=== PATIENT | female | born 1995 | race Caucasian/White ===

== ENCOUNTER 2019-10-23 18:46 | Emergency (ER) | payer BC ==
--- NOTE | 2019-10-23 18:51 | EDM.PDOC ---
ED HPI GENERAL MEDICAL PROBLEM - General Chief Complaint: Laceration Stated Complaint: Laceration Time Seen by Provider: 10/23/19 18:50 Source of Information: Reports: Patient, Family (), Old Records ([facility] EMR. No paper hospital chart available.) History Limitations: Reports: No Limitations - History of Present Illness INITIAL COMMENTS - FREE TEXT/NARRATIVE: The patient was brought to the emergency room via private automobile by her for evaluation of lacerations on her right hand, which occurred while she was trying to cut some paper with scissors at home at about 18:15 hours. No treatment or medications taken to this point. She has not injured this hand in the past, however the patient is right-handed. She did receive her DTaP during her last about one year ago. No recent history of abdominal pain, heartburn, nausea, diarrhea, melena, gross hematochezia, or any food intolerance , including fatty foods, etc.. The patient also denies any recent fever, cough, wheezing, dyspnea, etc.. Onset: Today, Sudden Onset Date: 10/23/19 Onset Time: 18:15 Duration: Constant Location: Reports: Upper Extremity, Right. Denies: Head, Face, Neck, Chest, Abdomen, Back, Upper Extremity, Left, Radiates to Quality: Reports: Same as Previous Episode, Sharp Severity: Severe Improves with: Reports: Rest Worsens with: Reports: Movement Context: Reports: Trauma (As above) Associated Symptoms: Reports: No Other Symptoms. 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 Full term without complications during pregnancies or deliveries Musculoskeletal History: Reports: Arthritis, Back Pain, Chronic, Neck Pain, Chronic, Osteoarthritis Psychiatric History: Reports: Anxiety, Depression Social & Family History - Tobacco Use Smoking Status *Q: Never Smoker Tobacco Use Within Last Twelve Months: No Used Tobacco, but Quit: No Smoking Cessation Information Provided To Patient: No Second Hand Smoke Exposure: Yes Source of Second Hand Smoke Exposure: uses chewing tobacco. Second Hand Smoke Education Provided: Yes - Living Situation & Occupation Living situation: Reports: (2019, 2 children), with Family Occupation: Employed ([employer]) ED ROS GENERAL - Review of Systems Review Of Systems: Comprehensive ROS is negative, except as noted in HPI. ED EXAM, SKIN/RASH Exam: See Below Exam Limited By: No Limitations General Appearance: Alert, WD/WN, No Apparent Distress Head: Atraumatic, Normocephalic Neck: Normal Inspection, Supple, Non-Tender, Full Range of Motion. No: Lymphadenopathy (L), Lymphadenopathy (R), Thyromegaly Respiratory/Chest: No Respiratory Distress, Lungs Clear, Normal Breath Sounds, No Accessory Muscle Use, Chest Non-Tender. No: Pleural Rub, Retractions Cardiovascular: Normal Peripheral Pulses, Regular Rate, Rhythm, No Edema, No Gallop, No JVD, No Murmur, No Rub. No: Gallop/S3, Gallop/S4, Friction Rub Peripheral Pulses: 2+: Radial (L), Radial (R) GI/Abdominal: Normal Bowel Sounds, Soft, Non-Tender, No Organomegaly, No Distention, No Abnormal Bruit, No Mass. No: Guarding (Female) Exam: Deferred Rectal (Female) Exam: Deferred Back Exam: Normal Inspection, Full Range of Motion. No: CVA Tenderness (L), CVA Tenderness (R), Muscle Spasm Extremities: No Pedal Edema, Normal Capillary Refill, Limited Range of Motion ( Secondary to pain), Other (1 cm in length palmar lacerations over the proximal phalangeal creases digits #4 and 5 of the right hand with no joint involvement, foreign body, vascular/tendon involvement, etc.). No: Non-Tender (Moderate localized tenderness over laceration sites of the right hand as below), Mayela's Sign Neurological: Alert, Oriented, CN II-XII Intact, Normal Cognition, Normal Gait, No Motor/Sensory Deficits, Other (No clinical orthostasis) Psychiatric: Normal Affect, Normal Mood Skin: Tattoo(s), Wound/Incision. No: Diaphoretic Location, Skin: Upper Extremity, Right Characteristics: Linear, Other (As above) Associated features: Tenderness. No: Swelling Lymphatic: No Adenopathy ED SKIN PROCEDURES - Laceration/Wound Repair Right Digit - 4th (Ring) Appearance: Superficial, Linear, Clean Distal NVT: Neuro & Vascular Intact, No Tendon Injury Anesthetic Type: Local Local Anesthesia - Lidocaine (Xylocaine): 1% Plain Local Anesthetic Volume: Other (2.5 cc) Skin Prep: Providone-Iodine (Betadine) Saline Irrigation (cc's): 0 Exploration/Debridement/Repair: Wound Explored, In a Bloodless Field, Explored to Base, No Foreign Material Found Closed with: Sutures Lac/Wound length In cm: 1.0 Suture Size: 4-0 # of Sutures: 3 Suture Type: Nylon, Interrupted, Simple # of Sutures: 3 Drain Placement: No Sterile Dressing Applied: Nurse Tetanus Status Addressed: Yes Complications: No Right Proximal Ventral Digit - 5th (Baby) Appearance: Superficial, Linear Distal NVT: Neuro & Vascular Intact, No Tendon Injury Anesthetic Type: Local Local Anesthesia - Lidocaine (Xylocaine): 1% Plain Local Anesthetic Volume: Other (2.5 cc) Skin Prep: Providone-Iodine (Betadine) Saline Irrigation (cc's): 0 Exploration/Debridement/Repair: Wound Explored, In a Bloodless Field, Explored to Base Closed with: Sutures Lac/Wound length In cm: 1.0 Suture Size: 4-0 # of Sutures: 3 Suture Type: Nylon, Interrupted, Simple Drain Placement: No Sterile Dressing Applied: Nurse Tetanus Status Addressed: Yes Complications: No - Splinting Right 4th Digit Splint Site: As above Pre-Procedure NV Status: Normal Post-Procedure NV Status: Normal Splint Material: Aluminum-Foam (3-hole padded) Splint Design: Extensor (And flexion) Applied & Form Fitted By: Nurse Provider Post-Splint Application NV Check: NV Status Normal, Good Position Complications: No Right 5th Digit Splint Site: As above Pre-Procedure NV Status: Normal Post-Procedure NV Status: Normal Splint Material: Aluminum-Foam (2-hole padded) Splint Design: Extensor (And flexion) Applied & Form Fitted By: Nurse Provider Post-Splint Application NV Check: NV Status Normal, Good Position Complications: No Course - Vital Signs Last Recorded V/S: Last Vital Signs Temp 36.9 C 10/23/19 18:54 Pulse 84 10/23/19 18:54 Resp 15 10/23/19 18:54 BP 98/52 L 10/23/19 18:54 Pulse Ox 96 10/23/19 18:54 Vital Signs - 24 hr 10/23/19 18:54 Temperature [ 36.9 C Temporal] Pulse, 84 Peripheral [ Right Pulse Oximetry] Respiratory 15 Rate Blood Pressure 98/52 L [Left Upper Arm ] O2 Sat by Pulse 96 Oximetry - Orders/Labs/Meds Orders: Active Orders 24 hr Category Date Time Status Durable Medical Equipment for Discharge [DME for Oth 10/23/19 19:25 Ordered Discharge] [COMM] Routine Obtain Past Medical Record [OM.PC] Routine Oth 10/23/19 18:51 Active Labs: None Meds: Medications Discontinued Medications Generic Name Dose Route Start Last Admin Trade Name Libby PRN Reason Stop Dose Admin Lidocaine HCl 5 ml 10/23/19 18:51 10/23/19 19:33 Xylocaine-Mpf 1% INJECT 10/23/19 18:52 Not Given ONETIME ONE Neomycin/Polymyxin/Bacitracin 1 each 10/23/19 18:52 10/23/19 19:33 Triple Antibiotic Oint TOP 10/23/19 18:53 1 each ONETIME ONE Administration - Radiology Interpretation Free Text/Narrative:: None Departure - Departure Time of Disposition: 19:45 Disposition: Home, Self-Care 01 Condition: Good Clinical Impression: Laceration, Tobacco abuse counseling, Mixed anxiety depressive disorder Osteoarthritis Qualifiers: Osteoarthritis location: multiple joints Osteoarthritis type: primary Qualified Code(s): M15.0 - Primary generalized (osteo)arthritis - Discharge Information *PRESCRIPTION DRUG MONITORING PROGRAM REVIEWED*: Not Applicable *COPY OF PRESCRIPTION DRUG MONITORING REPORT IN PATIENT MIGUELANGEL: Not Applicable Instructions: Laceration Care, Adult, [id number], Smokeless Tobacco Information, Adult, Stitches, Almita, or Adhesive Wound Closure, [id number] Forms: ED Department Discharge Additional Instructions: 1. Followup with your regular provider in 10-14 days as directed for suture removal. [facility] nurse may remove stitches, if she is allowed to remove work restrictions. Bring these discharge instructions with you to that visit. 2. Tylenol 650 mg by mouth every 4 hours and/or OTC ibuprofen 2-3 tabs by mouth every 6 hours with food as directed./needed. You may stagger these medications for 48-72 hours only, which essentially means that you are receiving a pain medication about every 2 hours. 3. Antibacterial soap wash/soak with subsequent antibacterial dressing such as Neosporin, etc. as directed 2 times per day until the wound or laceration site completely heals. Keep the area clean and dry with activity restrictions as discussed. Never use hydrogen peroxide for wound care. 4. Activity restrictions as discussed with finger splints to be worn at all times with exception of bathing and wound care. 5. Work excuse- See Form 6. Stop all tobacco exposure NERIS as directed with counselling, information, etc. given 7. Immediately after this visit verify that your cellular telephone's voicemail has been activated and is empty. Also verify that your home telephone 's answering machine is operating properly and has space to receive messages. Note that it is sometimes necessary for us to be able to contact you at a later date to discuss your medical care. 8. Please remember that we are ALWAYS here for you and want to answer any questions you may have. Feel free to call the hospital any time and we call you back NERIS. Sepsis Event Note - Focused Exam Vital Signs: Vital Signs Temp Pulse Resp BP Pulse Ox 10/23/19 18:54 36.9 C 84 15 98/52 L 96 Date Exam was Performed: 10/23/19 Time Exam was Performed: 20:19 - Problem List & Annotations (1) Laceration SNOMED Code(s): 759480352 Code(s): JYU7013 - Status: Acute Priority: High Onset Date: 10/23/19 Annotation/Comment:: Excellent results with laceration repairs as above. Finger splints and Neosporin dressing applied by the nurses as above to prevent wound dehiscence and torn sutures. Activity restrictions, wound care, etc. discussed. [place] work excuse completed. DTaP up-to-date as above. (2) Mixed anxiety depressive disorder SNOMED Code(s): 076080406 Code(s): F41.8 - OTHER SPECIFIED ANXIETY DISORDERS Status: Chronic Priority: Medium Annotation/Comment:: Stable with current medical therapy by patient history (3) Osteoarthritis SNOMED Code(s): 122579621 Code(s): M19.90 - UNSPECIFIED OSTEOARTHRITIS, UNSPECIFIED SITE Status: Chronic Priority: Medium Annotation/Comment:: Stable by patient history Qualifiers: Osteoarthritis location: multiple joints Osteoarthritis type: primary Qualified Code(s): M15.0 - Primary generalized (osteo)arthritis (4) Tobacco abuse counseling SNOMED Code(s): 697334477, 471880496, 383338103 Code(s): Z71.6 - TOBACCO ABUSE COUNSELING Status: Chronic Priority: Medium Annotation/Comment:: The patient's was counseled on the use of Nicorette gum for chewing tobacco cessation with information provided. - Problem List Review Problem List Initiated/Reviewed/Updated: Yes - My Orders Last 24 Hours: My Active Orders 10/23/19 18:51 Obtain Past Medical Record [OM.PC] Routine 10/23/19 19:25 Durable Medical Equipment for Discharge [DME for Discharge] [COMM] Routine - Assessment/Plan Last 24 Hours: My Active Orders 10/23/19 18:51 Obtain Past Medical Record [OM.PC] Routine 10/23/19 19:25 Durable Medical Equipment for Discharge [DME for Discharge] [COMM] Routine Assessment:: As above Plan: As above. Extensive precautions were given to the patient and her , who are in agreement with the treatment plan. See Patient Instructions for further treatment and plan.
[2019-10-23] MEDS ORDERED: Bacitracin/Neomycin/Polymyxin B Oint 0.9 GM U/D Packet TOP ONE (18:52)
== END 2019-10-23 19:40 | disposition home or self-care (01) ==
LOC: LL.ED 18:46
DX: S61.214A Laceration without foreign body of right ring finger without damage to nail, initial encounter (principal); S61.216A Laceration without foreign body of right little finger without damage to nail, initial encounter; F41.8 Other specified anxiety disorders; M19.91 Primary osteoarthritis, unspecified site; Z71.6 Tobacco abuse counseling; Z77.22 Contact with and (suspected) exposure to environmental tobacco smoke (acute) (chronic); Z79.899 Other long term (current) drug therapy; W27.2XXA Contact with scissors, initial encounter; Y93.89 Activity, other specified
CPT/HCPCS: 12001; 99282; J2001

== ENCOUNTER 2020-11-11 13:46 | Emergency (ER) | payer BC, OTHER ==
[2020-11-11] MEDS ORDERED: Bacitracin/Neomycin/Polymyxin B Oint 0.9 GM U/D Packet TOP ONE (13:52)
--- NOTE | 2020-11-11 13:52 | EDM.PDOC ---
ED HPI GENERAL MEDICAL PROBLEM - General Chief Complaint: Laceration Stated Complaint: Leg Laceration Time Seen by Provider: 11/11/20 13:52 Source of Information: Reports: Patient, Old Records ([facility] EMR. No paper hospital chart available.) History Limitations: Reports: No Limitations - History of Present Illness INITIAL COMMENTS - FREE TEXT/NARRATIVE: Patient drove herself to the emergency room via private automobile for evaluation of a Workmen's Compensation injury, which occurred at about 1 PM this afternoon. The patient was using a box finisher when she accidentally cut near her left knee with dressing placed but no other wound care, medications, etc. for this point. She has not injured this area in the past. No recent history of abdominal pain, heartburn, nausea, diarrhea, melena, gross hematochezia, or any food intolerance, including fatty foods, etc.. The patient also denies any recent fever, cough, wheezing, dyspnea, etc.. Onset: Today, Sudden Onset Date: 11/11/20 Onset Time: 13:00 Duration: Constant Location: Reports: Lower Extremity, Left. Denies: Head, Face, Neck, Chest, Abdomen, Back, Pelvis, Upper Extremity, Left, Upper Extremity, Right, Lower Extremity, Right, Radiates to Quality: Reports: Same as Previous Episode, Sharp Severity: Mild Improves with: Reports: None Worsens with: Reports: None Context: Reports: Trauma (As above) Associated Symptoms: Reports: No Other Symptoms. 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 Full term without complications during pregnancies or deliveries Musculoskeletal History: Reports: Arthritis, Back Pain, Chronic, Neck Pain, Chronic, Osteoarthritis Psychiatric History: Reports: Anxiety, Depression Social & Family History - Tobacco Use Tobacco Use Status *Q: Never Tobacco User Tobacco Use Within Last Twelve Months: No Used Tobacco, but Quit: No Smoking Cessation Information Provided To Patient: No Second Hand Smoke Exposure: Yes Source of Second Hand Smoke Exposure: chews tobacco. Second Hand Smoke Education Provided: Yes - Caffeine Use Caffeine Use: Reports: None - Living Situation & Occupation Living situation: Reports: (2019, 2 children), with Family Occupation: Employed ([employer]) ED ROS GENERAL - Review of Systems Review Of Systems: Comprehensive ROS is negative, except as noted in HPI. ED EXAM, SKIN/RASH Exam: See Below Exam Limited By: No Limitations General Appearance: Alert, WD/WN, No Apparent Distress Head: Atraumatic, Normocephalic Neck: Normal Inspection, Supple, Non-Tender, Full Range of Motion. No: Lymphadenopathy (L), Lymphadenopathy (R), Thyromegaly Respiratory/Chest: No Respiratory Distress, Lungs Clear, Normal Breath Sounds, No Accessory Muscle Use, Chest Non-Tender. No: Pleural Rub, Retractions Cardiovascular: Normal Peripheral Pulses, Regular Rate, Rhythm, No Edema, No Gallop, No JVD, No Murmur, No Rub. No: Gallop/S3, Gallop/S4, Friction Rub Peripheral Pulses: 2+: Radial (L), Radial (R) GI/Abdominal: Normal Bowel Sounds, Soft, Non-Tender, No Organomegaly, No Distention, No Abnormal Bruit, No Mass, Pelvis Stable. No: Guarding (Female) Exam: Deferred Rectal (Female) Exam: Deferred Back Exam: Normal Inspection, Full Range of Motion. No: CVA Tenderness (L), CVA Tenderness (R), Muscle Spasm Extremities: Normal Range of Motion, No Pedal Edema, Normal Capillary Refill, Leg Pain (Minimal palpation pain over the laceration site. 0.5 cm in diameter superficial laceration over the medial aspect of the left knee with no tendon, joint, nerve, etc. involvement. No evidence of foreign body.) Neurological: Alert, Oriented, CN II-XII Intact, Normal Cognition, Normal Gait, No Motor/Sensory Deficits Psychiatric: Normal Affect, Normal Mood Skin: Wound/Incision (As above). No: Diaphoretic Location, Skin: Lower Extremity, Left Characteristics: Other (As above) Associated features: Tenderness ( as above) Lymphatic: No Adenopathy ED SKIN PROCEDURES - Laceration/Wound Repair Left Medial Knee Appearance: Subcutaneous, Clean Distal NVT: Neuro & Vascular Intact, No Tendon Injury Anesthetic Type: Local Local Anesthesia - Lidocaine (Xylocaine): 1% Plain Local Anesthetic Volume: 4cc Skin Prep: Providone-Iodine (Betadine) Saline Irrigation (cc's): 0 Exploration/Debridement/Repair: Wound Explored, In a Bloodless Field, Explored to Base, No Foreign Material Found Closed with: Sutures Lac/Wound length In cm: 0.5 Suture Size: 4-0 # of Sutures: 2 Suture Type: Nylon, Interrupted, Simple Drain Placement: No Sterile Dressing Applied: Nurse Tetanus Status Addressed: Yes Complications: No Course - Orders/Labs/Meds Orders: Active Orders 24 hr Category Date Time Status Vaccines to be Administered [RC] PER UNIT ROUTINE Care 11/11/20 13:53 Active Obtain Past Medical Record [OM.PC] Routine Oth 11/11/20 13:52 Active Labs: None Meds: Medications Discontinued Medications Generic Name Dose Route Start Last Admin Trade Name Freq PRN Reason Stop Dose Admin Lidocaine HCl 5 ml 11/11/20 13:52 Xylocaine-Mpf 1% INJECT 11/11/20 13:53 ONETIME ONE Lidocaine HCl 5 ml 11/11/20 13:53 Xylocaine-Mpf 1% INJECT 11/11/20 13:54 ONETIME ONE Neomycin/Polymyxin/Bacitracin 1 each 11/11/20 13:52 11/11/20 14:01 Triple Antibiotic Oint TOP 11/11/20 13:53 1 each ONETIME ONE Administration - Radiology Interpretation Free Text/Narrative:: None Departure - Departure Time of Disposition: 14:22 Disposition: Home, Self-Care 01 Condition: Good Clinical Impression: Laceration, Tobacco abuse counseling Osteoarthritis Qualifiers: Osteoarthritis location: multiple joints Osteoarthritis type: primary Qualified Code(s): M15.0 - Primary generalized (osteo)arthritis - Discharge Information *PRESCRIPTION DRUG MONITORING PROGRAM REVIEWED*: Not Applicable *COPY OF PRESCRIPTION DRUG MONITORING REPORT IN PATIENT MIGUELANGEL: Not Applicable Instructions: Laceration Care, Adult, [id number], Sutures, Almita, or Adhesive Wound Closure, [id number], Smokeless Tobacco Information, Adult Referrals: Joey Santana PA [Primary Care Provider] - Forms: ED Department Discharge Additional Instructions: 1. Follow up with your regular provider in 10-14 days for suture removal as directed. Bring these discharge instructions with you to that visit. 2. Antibacterial soap wash/soak with subsequent antibacterial dressing such as Neosporin, etc. as directed 2 times per day until the wound or laceration site completely heals. Keep the area clean and dry with activity restrictions as discussed. Never use hydrogen peroxide for wound care. 3. Work excuse- See Form 4. Stop all tobacco exposure NERIS as directed with counselling, information, etc. given at discharge. 5. Immediately after this visit verify that your cellular telephone's voicemail has been activated and is empty. Also verify that your home telephone's answering machine is operating properly and has space to receive messages. Note that it is sometimes necessary for us to be able to contact you at a later date to discuss your medical care. 6. Please remember that we are ALWAYS here for you and want to answer any questions you may have. Feel free to call the hospital any time and we call you back NERIS. - Problem List & Annotations (1) Laceration SNOMED Code(s): 845362001 Code(s): RUE8904 - Status: Acute Priority: High Current Visit: Yes Onset Date: 11/11/20 Annotation/Comment:: Excellent results with laceration repair as above. Neosporin dressing applied by the nurse. Activity restrictions, wound care, etc. discussed. [place] work excuse and Workmen's Compensation forms were completed. DTaP up-to-date with the patient receiving this immunization at the time of her last about 2 years ago. (2) Osteoarthritis SNOMED Code(s): 805950077 Code(s): M19.90 - UNSPECIFIED OSTEOARTHRITIS, UNSPECIFIED SITE Status: Chronic Priority: Medium Current Visit: Yes Annotation/Comment:: Stable by patient history. No evidence of other injuries. Qualifiers: Osteoarthritis location: multiple joints Osteoarthritis type: primary (3) Tobacco abuse counseling SNOMED Code(s): 332487913, 629576664, 802865985 Code(s): Z71.6 - TOBACCO ABUSE COUNSELING Status: Chronic Priority: Medium Current Visit: Yes Annotation/Comment:: The patient's was previously counseled on the use of Nicorette gum about 1 year ago with chewing tobacco cessation information once again provided. - Problem List Review Problem List Initiated/Reviewed/Updated: Yes - My Orders Last 24 Hours: My Active Orders 11/11/20 13:52 Obtain Past Medical Record [OM.PC] Routine 11/11/20 13:53 Vaccines to be Administered [RC] PER UNIT ROUTINE - Assessment/Plan Last 24 Hours: My Active Orders 11/11/20 13:52 Obtain Past Medical Record [OM.PC] Routine 11/11/20 13:53 Vaccines to be Administered [RC] PER UNIT ROUTINE Assessment:: As above Plan: As above. Extensive precautions were given to the patient, who is in agreement with the treatment plan. See Patient Instructions for further treatment and plan.
[2020-11-11] MEDS ORDERED: Diphtheria,Pertussis(Acell),Tetanus Vaccine 0.5 ML Syringe IM ONE (13:53)
== END 2020-11-11 14:25 | disposition home or self-care (01) ==
LOC: LL.ED 13:46
DX: S81.012A Laceration without foreign body, left knee, initial encounter (principal); M15.0 Primary generalized (osteo)arthritis; Z71.6 Tobacco abuse counseling; W27.8XXA Contact with other nonpowered hand tool, initial encounter; Y99.0 Civilian activity done for income or pay; Z79.899 Other long term (current) drug therapy
CPT/HCPCS: 12001; 99282; 99282-25

== ENCOUNTER 2025-05-20 10:15 | Emergency (ER) | payer BC ==
[2025-05-20] MEDS: Ondansetron 4 MG/2 ML SDV IVPUSH ONE (10:40)
[2025-05-20] MEDS: Sodium Chloride 0.9% 10 ML Syringe FLUSH PRN (10:43)
[2025-05-20] MEDS: Ketorolac 15 MG/ML SDV IVPUSH ONE (10:44)
== END 2025-05-20 12:54 | disposition home or self-care (01) ==
LOC: LL.ED 10:15
DX: S52.614A Nondisplaced fracture of right ulna styloid process, initial encounter for closed fracture (principal); S52.501A Unspecified fracture of the lower end of right radius, initial encounter for closed fracture; Z79.899 Other long term (current) drug therapy; W17.89XA Other fall from one level to another, initial encounter; Y93.89 Activity, other specified
CPT/HCPCS: 29125; 73090-RT; 73110-RT; 96374; 96375; 96376; 99284-25; J1885; J2270; J2405

== ENCOUNTER 2025-08-28 10:56 | Day surgery (SDC) | payer BC ==
[~2025-08-28 10:56] MED LIST: Midazolam 1 MG/ML 2 ML SDV ONE; Propofol 200 MG/20 ML SDV ONE; Sodium Chloride 0.9% 10 ML Syringe FLUSH PRN
[2025-08-28] MEDS: Lactated Ringers 1,000 ML IV SCH (11:05)
== END 2025-08-28 12:33 | disposition home or self-care (01) ==
LOC: LL.SDS 10:56
PROVIDERS: ATTEND Surgery
DX: K21.00 Gastro-esophageal reflux disease with esophagitis, without bleeding (principal); F41.1 Generalized anxiety disorder; Z79.899 Other long term (current) drug therapy
CPT/HCPCS: 00731; 36415; 84703; J2250; J2704; J7120